=== PATIENT | female | born 1975 | race Caucasian/White ===

== ENCOUNTER 2020-06-06 10:38 | Emergency (ER) | payer OTHER ==
[~2020-06-06] VITALS: Ht 172.7 cm; Wt 72.6 kg
[~2020-06-06 10:38] MED LIST: HYDROCODONE-APA1 TA1 PO
[2020-06-06] MEDS ORDERED: AUGMENTIN 875-1 EACH PO (11:24)
[2020-06-06 12:03] VITALS: BP 148/91
== END 2020-06-06 12:04 | disposition home or self-care (01) ==
LOC: M.ERS 10:38
DX: S71.152A Open bite, left thigh, initial encounter (principal); Z88.1 Allergy status to other antibiotic agents; W54.0XXA Bitten by dog, initial encounter; Y93.89 Activity, other specified; Y92.89 Other specified places as the place of occurrence of the external cause; Y99.8 Other external cause status